=== PATIENT | female | born 1975 | race American Indian/Alaskan Native ===

== ENCOUNTER 2022-12-02 04:03 | Inpatient (IN) | payer BC ==
[2022-12-02] MEDS ORDERED: KETAMINE HCL 500 MG/10 ML VIAL ONE (06:45)
[2022-12-02] MEDS ORDERED: MIDAZOLAM HCL 2 MG/2 ML SINGLE DOSE VIAL ONE (06:45)
[2022-12-02] MEDS ORDERED: PROPOFOL 40 ML ONE ×2 (06:45→08:30)
[2022-12-02] MEDS ORDERED: ROCURONIUM BROMIDE 50 MG/5 ML SYRINGE ONE (06:46)
[2022-12-02] MEDS ORDERED: SUCCINYLCHOLINE CHLORIDE 200 MG/10 ML SYRINGE ONE ×2 (06:46→08:29)
[2022-12-02] MEDS ORDERED: BUPIVACAINE HCL/PF 0.25% (2.5MG/ML) 10 ML VIAL ONE (07:12)
[2022-12-02] MEDS ORDERED: ACETAMINOPHEN INJECTION 100 ML IVPB ONE (07:50)
[2022-12-02] MEDS ORDERED: ceFAZolin SODIUM 1 GM VIAL IVPB ONE (08:00)
[2022-12-02] MEDS ORDERED: BISACODYL 5 MG TABLET.DR (FP) PO PRN (10:33)
[2022-12-02] MEDS ORDERED: ONDANSETRON 4 MG/2 ML VIAL IVPUSH PRN (10:33)
[2022-12-02] MEDS: HYDROmorphone *PCA* 10MG/50ML DISP.SYRIN PCA SCH (10:35)
[2022-12-02 13:01] VITALS: BMI 32.8
[2022-12-02] MEDS: SODIUM CHLORIDE 1,000 ML IV SCH (13:07)
[2022-12-02] MEDS: ACETAMINOPHEN 1000 MG/100 ML BAG IVPB SCH ×2 (14:42→21:37)
[2022-12-02] MEDS: CEFAZOLIN 1 GM in DEXTROSE 5%-WATER - 50 ML IVPB SCH (15:58)
[2022-12-02] MEDS: IBUPROFEN 800 MG/8 ML IJ IVPB SCH (17:33)
[2022-12-02 19:46] LABS: HEMATOCRIT 17.8 % (32.4-45.2); MCH 21.5 pg (25.7-33.7); MCHC 32.8 g/dl (32.0-36.0); MEAN CELL VOLUME 65.7 fl (80-96); MEAN PLT VOLUME 7.9 fl (7.5-11.1); PLATELET COUNT 174 10^3/uL (134-434); RDW 18.3 % (11.6-15.6); WHITE BLOOD COUNT 9.8 K/mm3 (4.0-10.0)
[2022-12-02 19:55] LABS: HEMOGLOBIN 5.8 GM/dL (10.7-15.3)
[2022-12-02 20:05] LABS: POTASSIUM 3.6 mmol/L (3.5-5.1)
[2022-12-02 20:08] LABS: CALCIUM 7.6 mg/dL (8.5-10.1)
[2022-12-02 20:12] LABS: CREATININE 0.4 mg/dL (0.55-1.3)
[2022-12-03] MEDS: CEFAZOLIN 1 GM in DEXTROSE 5%-WATER - 50 ML IVPB SCH (00:13)
[2022-12-03] MEDS: IBUPROFEN 800 MG/8 ML IJ IVPB SCH ×2 (01:57→09:59)
[2022-12-03] MEDS: SIMETHICONE 80 MG TAB.CHEW (FP) PO PRN ×3 (03:45→22:13)
[2022-12-03] MEDS: ACETAMINOPHEN 1000 MG/100 ML BAG IVPB SCH (03:47)
[2022-12-03 06:52] LABS: HEMATOCRIT 28.3 % (32.4-45.2); HEMOGLOBIN 9.8 GM/dL (10.7-15.3); MCH 24.6 pg (25.7-33.7); MCHC 34.5 g/dl (32.0-36.0); MEAN PLT VOLUME 8.2 fl (7.5-11.1); PLATELET COUNT 158 10^3/uL (134-434); RBC 3.97 M/mm3 (3.60-5.2); RDW 21.2 % (11.6-15.6); WHITE BLOOD COUNT 11.9 K/mm3 (4.0-10.0)
[2022-12-03 07:00] LABS: MEAN CELL VOLUME 71.2 fl (80-96)
[2022-12-03 07:20] LABS: CHLORIDE 109 mmol/L (98-107); POTASSIUM 3.2 mmol/L (3.5-5.1); SODIUM 139 mmol/L (136-145)
[2022-12-03 07:21] LABS: CALCIUM 7.7 mg/dL (8.5-10.1)
[2022-12-03 07:22] LABS: ANION GAP 6 MMOL/L (8-16); CO2 24 mmol/L (21-32); GLUCOSE,RANDOM 96 mg/dL (74-106)
[2022-12-03 07:25] LABS: CREATININE 0.4 mg/dL (0.55-1.3)
[2022-12-03 07:26] LABS: BLOOD UREA NITROGEN 2.8 mg/dL (7-18)
[2022-12-03] MEDS: ENOXAPARIN NA (PORCINE) 40 MG/0.4 ML DISP.SYRIN SQ SCH (09:59)
[2022-12-03] MEDS: ACETAMINOPHEN 500 MG TABLET (FP) PO SCH ×2 (13:06→17:28)
[2022-12-03] MEDS: SODIUM CHLORIDE 1,000 ML IV SCH (13:07)
[2022-12-03] MEDS: FERROUS SO4 325 MG TABLET (FP) PO SCH (13:07)
[2022-12-03] MEDS: ASCORBIC ACID 500 MG TABLET (FP) PO SCH (13:16)
[2022-12-03] MEDS: HYDROmorphone *PCA* 10MG/50ML DISP.SYRIN PCA SCH (13:18)
[2022-12-03] MEDS ORDERED: POTASSIUM CHLORIDE TABS 20 MEQ TABLET.ER (FP) PO ONE (13:30)
[2022-12-03 15:50] LABS: BASO % 0.3 % (0-2.0); EOS % 2.5 % (0-4.5); HEMATOCRIT 29.8 % (32.4-45.2); HEMOGLOBIN 10.1 GM/dL (10.7-15.3); LYMPH % 9.9 % (8-40); MCHC 33.8 g/dl (32.0-36.0); MEAN PLT VOLUME 8.4 fl (7.5-11.1); MONO % 6.8 % (3.8-10.2); NEUT % 80.5 % (42.8-82.8); PLATELET COUNT 172 10^3/uL (134-434); RBC 4.19 M/mm3 (3.60-5.2); RDW 21.2 % (11.6-15.6); WHITE BLOOD COUNT 13.6 K/mm3 (4.0-10.0)
[2022-12-03 16:50] LABS: ANISOCYTOSIS 3+; MACROCYTOSIS 0
[2022-12-03] MEDS: oxyCODONE HCL 5 MG TABLET PO PRN ×2 (18:11→22:13)
[2022-12-03 20:38] LABS: POTASSIUM 3.1 mmol/L (3.5-5.1)
[2022-12-03 20:40] LABS: CALCIUM 8.4 mg/dL (8.5-10.1)
[2022-12-03 20:41] LABS: ALBUMIN 3.1 g/dl (3.4-5.0); BLOOD UREA NITROGEN 3.8 mg/dL (7-18)
[2022-12-03 20:44] LABS: CREATININE 0.5 mg/dL (0.55-1.3)
[2022-12-03 20:45] LABS: TOT PROT 6.6 g/dl (6.4-8.2)
[2022-12-03 20:46] LABS: BILIRUBIN,TOTAL 0.6 mg/dL (0.2-1)
[2022-12-03] MEDS: DOCUSATE SODIUM 100 MG CAPSULE (FP) PO PRN (22:13)
[2022-12-04] MEDS: ACETAMINOPHEN 500 MG TABLET (FP) PO SCH ×4 (00:12→18:27)
[2022-12-04] MEDS: oxyCODONE HCL 5 MG TABLET PO PRN ×3 (09:35→22:41)
[2022-12-04] MEDS: ASCORBIC ACID 500 MG TABLET (FP) PO SCH (09:35)
[2022-12-04] MEDS: ENOXAPARIN NA (PORCINE) 40 MG/0.4 ML DISP.SYRIN SQ SCH (09:38)
[2022-12-04 10:17] LABS: BASO % 0.3 % (0-2.0); EOS % 2.4 % (0-4.5); HEMATOCRIT 32.5 % (32.4-45.2); MCH 23.8 pg (25.7-33.7); MCHC 33.7 g/dl (32.0-36.0); MEAN CELL VOLUME 70.6 fl (80-96); MEAN PLT VOLUME 8.3 fl (7.5-11.1); MONO % 6.9 % (3.8-10.2); NEUT % 82.4 % (42.8-82.8); PLATELET COUNT 209 10^3/uL (134-434); RBC 4.61 M/mm3 (3.60-5.2); RDW 21.4 % (11.6-15.6); WHITE BLOOD COUNT 14.3 K/mm3 (4.0-10.0)
[2022-12-04 10:37] LABS: POTASSIUM 3.1 mmol/L (3.5-5.1)
[2022-12-04 10:43] LABS: ALBUMIN 3.3 g/dl (3.4-5.0); BLOOD UREA NITROGEN 3.2 mg/dL (7-18); CALCIUM 8.7 mg/dL (8.5-10.1)
[2022-12-04 10:46] LABS: CREATININE 0.4 mg/dL (0.55-1.3); TOT PROT 6.9 g/dl (6.4-8.2)
[2022-12-04 10:48] LABS: BILIRUBIN,TOTAL 0.9 mg/dL (0.2-1)
[2022-12-04] MEDS: FERROUS SO4 325 MG TABLET (FP) PO SCH (10:50)
[2022-12-04] MEDS: SIMETHICONE 80 MG TAB.CHEW (FP) PO PRN ×2 (14:54→22:40)
[2022-12-04] MEDS ORDERED: AMOX TR/POT CLAV 500MG/125MG TABLETS (FP) PO SCH (16:30)
[2022-12-04] MEDS: AMOX TR/POT CLAV 500MG/125MG TABLETS (FP) PO SCH (17:20)
[2022-12-04 18:45] LABS: BASO % 0.5 % (0-2.0); EOS % 2.5 % (0-4.5); HEMOGLOBIN 10.4 GM/dL (10.7-15.3); LYMPH % 9.3 % (8-40); MCH 23.6 pg (25.7-33.7); MCHC 33.5 g/dl (32.0-36.0); MEAN CELL VOLUME 70.4 fl (80-96); MEAN PLT VOLUME 7.7 fl (7.5-11.1); MONO % 7.5 % (3.8-10.2); NEUT % 80.2 % (42.8-82.8); PLATELET COUNT 206 10^3/uL (134-434); RDW 22.4 % (11.6-15.6); WHITE BLOOD COUNT 12.9 K/mm3 (4.0-10.0)
[2022-12-04 20:12] LABS: EPI CELLS >36 /uL (0-25.1); HYALINE CASTS 1 /uL (0-3.1); URINE APPEARANCE CLEAR; URINE BACTERIA 1737 /uL (0-1359); URINE BILIRUBIN NEGATIVE (NEGATIVE); URINE COLOR YELLOW; URINE GLUCOSE (UA) NEGATIVE (NEGATIVE); URINE KETONE 3+ (NEGATIVE); URINE LEUK ESTERASE 1+ (NEGATIVE); URINE NITRITE NEGATIVE (NEGATIVE); URINE PROTEIN TRACE (NEGATIVE); URINE RBC 19 /uL (0-23.9); URINE WBC 134 /uL (0-25.8)
[2022-12-04] MEDS: PIPERACILLIN/TAZOB 2.25 GM 2.25 GM in DEXTROSE 5%-WATER - 50 ML IVPB SCH (21:51)
[2022-12-04] MEDS ORDERED: PIPERACILLIN/TAZOB 2.25 GM 2.25 GM in DEXTROSE 5%-WATER - 50 ML IVPB SCH (22:00)
[2022-12-05] MEDS: ACETAMINOPHEN 500 MG TABLET (FP) PO SCH ×5 (00:25→23:58)
[2022-12-05] MEDS: SIMETHICONE 80 MG TAB.CHEW (FP) PO PRN ×2 (06:05→20:44)
[2022-12-05] MEDS: AMOX TR/POT CLAV 500MG/125MG TABLETS (FP) PO SCH ×2 (08:45→18:05)
[2022-12-05] MEDS: IBUPROFEN 600 MG TABLET (FP) PO PRN ×2 (08:46→20:45)
[2022-12-05] MEDS: ASCORBIC ACID 500 MG TABLET (FP) PO SCH (11:26)
[2022-12-05] MEDS: ENOXAPARIN NA (PORCINE) 40 MG/0.4 ML DISP.SYRIN SQ SCH (11:27)
[2022-12-05] MEDS: FERROUS SO4 325 MG TABLET (FP) PO SCH (11:27)
[2022-12-05] MEDS: PIPERACILLIN/TAZOB 2.25 GM 2.25 GM in DEXTROSE 5%-WATER - 50 ML IVPB SCH (11:28)
[2022-12-05 19:22] LABS: BASO % 0.5 % (0-2.0); HEMATOCRIT 33.6 % (32.4-45.2); HEMOGLOBIN 11.1 GM/dL (10.7-15.3); LYMPH % 11.7 % (8-40); MCH 23.4 pg (25.7-33.7); MCHC 33.2 g/dl (32.0-36.0); MEAN CELL VOLUME 70.6 fl (80-96); MEAN PLT VOLUME 8.3 fl (7.5-11.1); NEUT % 75.8 % (42.8-82.8); PLATELET COUNT 254 10^3/uL (134-434); RBC 4.75 M/mm3 (3.60-5.2); RDW 22.8 % (11.6-15.6); WHITE BLOOD COUNT 12.7 K/mm3 (4.0-10.0)
[2022-12-05 19:40] LABS: POTASSIUM 3.4 mmol/L (3.5-5.1)
[2022-12-05 19:41] LABS: CALCIUM 8.9 mg/dL (8.5-10.1)
[2022-12-05 19:42] LABS: BLOOD UREA NITROGEN 7.1 mg/dL (7-18)
[2022-12-05] MEDS: POTASSIUM CHLORIDE TABS 20 MEQ TABLET.ER (FP) PO SCH (19:44)
[2022-12-05 19:45] LABS: CREATININE 0.6 mg/dL (0.55-1.3)
[2022-12-05 20:44] VITALS: RESP 18
[2022-12-05] MEDS: DOCUSATE SODIUM 100 MG CAPSULE (FP) PO PRN (20:44)
[2022-12-06] MEDS: ACETAMINOPHEN 500 MG TABLET (FP) PO SCH ×2 (06:00→12:10)
[2022-12-06] MEDS: AMOX TR/POT CLAV 500MG/125MG TABLETS (FP) PO SCH (09:00)
[2022-12-06] MEDS: FERROUS SO4 325 MG TABLET (FP) PO SCH (09:11)
[2022-12-06] MEDS: ENOXAPARIN NA (PORCINE) 40 MG/0.4 ML DISP.SYRIN SQ SCH (09:11)
[2022-12-06] MEDS: ASCORBIC ACID 500 MG TABLET (FP) PO SCH (09:15)
[2022-12-06 09:16] LABS: HEMATOCRIT 32.8 % (32.4-45.2); HEMOGLOBIN 11.2 GM/dL (10.7-15.3); MCH 24.2 pg (25.7-33.7); MCHC 34.2 g/dl (32.0-36.0); MEAN CELL VOLUME 70.9 fl (80-96); MEAN PLT VOLUME 7.9 fl (7.5-11.1); PLATELET COUNT 263 10^3/uL (134-434); RBC 4.63 M/mm3 (3.60-5.2); RDW 22.8 % (11.6-15.6); WHITE BLOOD COUNT 11.1 K/mm3 (4.0-10.0)
[2022-12-06 09:18] VITALS: BP 127/82; PULSE 91; TEMP 97.5
[2022-12-06 09:21] LABS: POTASSIUM 3.7 mmol/L (3.5-5.1)
[2022-12-06 09:23] LABS: CALCIUM 9.1 mg/dL (8.5-10.1)
[2022-12-06 09:25] LABS: ALBUMIN 3.3 g/dl (3.4-5.0); BLOOD UREA NITROGEN 5.7 mg/dL (7-18)
[2022-12-06 09:27] LABS: CREATININE 0.4 mg/dL (0.55-1.3)
[2022-12-06 09:28] LABS: BILIRUBIN,TOTAL 0.7 mg/dL (0.2-1); TOT PROT 7.2 g/dl (6.4-8.2)
[2022-12-06] MEDS: POTASSIUM CHLORIDE TABS 20 MEQ TABLET.ER (FP) PO SCH (10:23)
== END 2022-12-06 13:15 | disposition home or self-care (01) | DRG 742 ==
LOC: J2C 04:03 → J3W 12:25
PROVIDERS: ADMIT Obstetrics & Gynecology; ATTEND Obstetrics & Gynecology
PROC: 0UT70ZZ Resection of Bilateral Fallopian Tubes, Open Approach (ICD-10-PCS; 2022-12-02)
PROC: 0UT90ZZ Resection of Uterus, Open Approach (ICD-10-PCS; 2022-12-02)
PROC: 30233N1 Transfusion of Nonautologous Red Blood Cells into Peripheral Vein, Percutaneous Approach (ICD-10-PCS; principal; 2022-12-02 07:30)
DX: D25.9 Leiomyoma of uterus, unspecified (principal); D62 Acute posthemorrhagic anemia; N80.03 Adenomyosis of the uterus; E66.9 Obesity, unspecified; Z68.32 Body mass index [BMI] 32.0-32.9, adult
CPT/HCPCS: 36415; 36430; 80048; 80053; 81003; 81025; 85025; 85027; 86850; 86900; 86901; 86922; 87086; 88302-TC; 88305-TC; 88307-TC; 94010; 94760; P9058

== ENCOUNTER 2023-12-05 04:11 | Day surgery (SDC) | payer BC ==
[2023-11-30 14:45] VITALS: BMI 35.2
[2023-12-05] MEDS ORDERED: PHENAZOPYRIDINE HCL 100 MG TABLET (FP) ONE (06:16)
[2023-12-05] MEDS ORDERED: ceFAZolin SODIUM 1 GM VIAL ONE ×2 (06:16→07:01)
[2023-12-05] MEDS: PHENAZOPYRIDINE HCL 100 MG TABLET (FP) PO ONE (06:18)
[2023-12-05] MEDS ORDERED: KETOROLAC TROMETHAMINE 30 MG/1 ML VIAL ONE (07:01)
[2023-12-05] MEDS ORDERED: SUGAMMADEX SODIUM 200 MG/2 ML VIAL ONE ×2 (07:01→08:19)
[2023-12-05] MEDS ORDERED: ONDANSETRON 4 MG/2 ML VIAL ONE ×2 (07:01→10:44)
[2023-12-05] MEDS ORDERED: LIDOCAINE HCL/PF 2% SDV 5ML VIAL ONE (07:01)
[2023-12-05] MEDS ORDERED: DEXAMETHASONE SOD PHOSPHATE 4 MG/1 ML VIAL ONE (07:01)
[2023-12-05] MEDS ORDERED: ROCURONIUM BROMIDE 50 MG/5 ML SYRINGE ONE (07:02)
[2023-12-05] MEDS ORDERED: PROPOFOL 20 ML ONE ×3 (07:09→10:42)
[2023-12-05] MEDS ORDERED: FENTANYL CITRATE/PF 50 MCG/ML VIAL ONE ×2 (07:10→11:10)
[2023-12-05] MEDS ORDERED: SUCCINYLCHOLINE CHLORIDE 200 MG/10 ML SYRINGE ONE (07:10)
[2023-12-05] MEDS ORDERED: MIDAZOLAM HCL 2 MG/2 ML SINGLE DOSE VIAL ONE (07:11)
[2023-12-05] MEDS: CEFAZOLIN SODIUM 2 GM in DEXTROSE 5%-WATER 100 ML IVPB ONE (07:30)
[2023-12-05] MEDS ORDERED: ACETAMINOPHEN INJECTION 100 ML IVPB ONE (07:36)
[2023-12-05] MEDS: ceFAZolin SODIUM 1 GM VIAL IVPB ONE ×2 (07:50)
[2023-12-05] MEDS ORDERED: HYDROmorphone HCl 2 MG/ML VIAL ONE (08:00)
[2023-12-05] MEDS ORDERED: oxyCODONE HCL 5 MG TABLET PO PRN ×3 (08:09→11:25)
[2023-12-05] MEDS ORDERED: ONDANSETRON 4 MG/2 ML VIAL IVPUSH PRN ×2 (08:09→11:25)
[2023-12-05] MEDS ORDERED: BUPIVACAINE HCL/PF 0.5% (5MG/ML) 10 ML VIAL ONE (08:16)
[2023-12-05] MEDS ORDERED: BISACODYL 5 MG TABLET.DR (FP) PO PRN (11:25)
[2023-12-05] MEDS ORDERED: SIMETHICONE 80 MG TAB.CHEW (FP) PO PRN (11:25)
[2023-12-05] MEDS: LACTATED RINGERS SOLUTION 1,000 ML IV SCH (12:00)
[2023-12-05] MEDS: ACETAMINOPHEN 500 MG TABLET (FP) PO SCH (17:12)
[2023-12-05] MEDS: CEFAZOLIN 1 GM in DEXTROSE 5%-WATER - 50 ML IVPB SCH (17:12)
[2023-12-05] MEDS ORDERED: CEFAZOLIN 1 GM/D5W 1 GM/50 ML BAG IVPB SCH (18:00)
[2023-12-05] MEDS: IBUPROFEN 800 MG/8 ML IJ IVPB PRN (18:11)
[2023-12-05 19:09] LABS: HEMOGLOBIN 13.2 GM/dL (10.7-15.3); MCH 26.9 pg (25.7-33.7); MEAN CELL VOLUME 81.4 fl (80-96); MEAN PLT VOLUME 8.8 fl (7.5-11.1); PLATELET COUNT 286 10^3/uL (134-434); RBC 4.91 M/mm3 (3.60-5.2); RDW 13.4 % (11.6-15.6)
[2023-12-05 19:27] LABS: POTASSIUM 3.8 mmol/L (3.5-5.1)
[2023-12-05 19:33] LABS: CREATININE 0.8 mg/dL (0.55-1.3)
[2023-12-06 07:00] LABS: HEMATOCRIT 31.4 % (32.4-45.2); HEMOGLOBIN 10.5 GM/dL (10.7-15.3); MCH 26.8 pg (25.7-33.7); MCHC 33.4 g/dl (32.0-36.0); MEAN CELL VOLUME 80.3 fl (80-96); MEAN PLT VOLUME 8.7 fl (7.5-11.1); PLATELET COUNT 245 10^3/uL (134-434); RBC 3.92 M/mm3 (3.60-5.2); RDW 13.1 % (11.6-15.6); WHITE BLOOD COUNT 14.4 K/mm3 (4.0-10.0)
[2023-12-06 07:18] LABS: POTASSIUM 3.6 mmol/L (3.5-5.1)
[2023-12-06 07:19] LABS: CALCIUM 8.9 mg/dL (8.5-10.1)
[2023-12-06 07:20] LABS: BLOOD UREA NITROGEN 5.2 mg/dL (7-18)
[2023-12-06 07:23] LABS: CREATININE 0.5 mg/dL (0.55-1.3)
[2023-12-06] MEDS: ENOXAPARIN NA (PORCINE) 40 MG/0.4 ML DISP.SYRIN SQ SCH (10:34)
[2023-12-06 11:07] LABS: BASO % 0.7 % (0-2.0); EOS % 0.2 % (0-4.5); HEMATOCRIT 31.7 % (32.4-45.2); HEMOGLOBIN 10.7 GM/dL (10.7-15.3); LYMPH % 15.2 % (8-40); MCHC 33.7 g/dl (32.0-36.0); MEAN CELL VOLUME 80.1 fl (80-96); MEAN PLT VOLUME 8.6 fl (7.5-11.1); MONO % 7.3 % (3.8-10.2); NEUT % 76.6 % (42.8-82.8); PLATELET COUNT 239 10^3/uL (134-434); RBC 3.95 M/mm3 (3.60-5.2); RDW 13.1 % (11.6-15.6); WHITE BLOOD COUNT 14.2 K/mm3 (4.0-10.0)
[2023-12-06 11:21] VITALS: BP 134/82; PULSE 98; RESP 17; TEMP 98.2
== END 2023-12-06 13:40 | disposition home or self-care (01) ==
LOC: JASU-SURG 04:11 → JASUSAT 04:11 → J3W 14:26 → JASUSAT 12-06 13:40
PROVIDERS: ATTEND Obstetrics & Gynecology
PROC: 0UB24ZZ Excision of Bilateral Ovaries, Percutaneous Endoscopic Approach (ICD-10-PCS; 2023-12-05)
PROC: 0DNW4ZZ Release Peritoneum, Percutaneous Endoscopic Approach (ICD-10-PCS; 2023-12-05)
PROC: 0DNW4ZZ Release Peritoneum, Percutaneous Endoscopic Approach (ICD-10-PCS; 2023-12-05)
PROC: 0DNW4ZZ Release Peritoneum, Percutaneous Endoscopic Approach (ICD-10-PCS; principal; 2023-12-05 07:30)
PROC: 0UT74ZZ Resection of Bilateral Fallopian Tubes, Percutaneous Endoscopic Approach (ICD-10-PCS; 2023-12-05 07:30)
DX: N83.11 Corpus luteum cyst of right ovary (principal); D27.1 Benign neoplasm of left ovary; N99.4 Postprocedural pelvic peritoneal adhesions
CPT/HCPCS: 36415; 80048; 81025; 85025; 85027; 88305-TC; 94010; 94760; J0131